=== PATIENT | male | born 1980 | race Caucasian/White ===

== ENCOUNTER 2018-08-01 16:43 | Emergency (ER) | payer OTHER ==
[~2018-08-01] VITALS: Ht 170.2 cm; Wt 99.8 kg
[2018-08-01 18:19] VITALS: BP 116/88
--- NOTE | 2018-08-01 18:25 | NUR ---
Patient discharged to home in stable conditon. Written and verbal after care instructions given. Patient verbalizes understanding of instructions.
== END 2018-08-01 18:25 | disposition home or self-care (01) ==
LOC: ER 16:43
DX: S90.111A Contusion of right great toe without damage to nail, initial encounter (principal); W21.00XA Struck by hit or thrown ball, unspecified type, initial encounter; Y93.89 Activity, other specified; Y92.89 Other specified places as the place of occurrence of the external cause; Y99.8 Other external cause status
CPT/HCPCS: 73630; A4663